=== PATIENT | female | born 1980 | race Caucasian/White ===

== ENCOUNTER → 2021-06-27 13:57 | Outpatient (CLI) | payer BC, SELFPAY ==
--- NOTE | 2021-06-27 13:57 | US_ITS ---
PROCEDURE: US TRANSVAGINAL CLINICAL INDICATION: rule out polyps or fibroids Heavy vaginal bleeding COMPARISON: No exams were available for comparison FINDINGS: UTERUS: 9cm x 6cmx 4cm with a combined endometrial thickness of 18.7mm LEFT OVARY: [id number] with a volume of 15ml. RIGHT OVARY: [id number] with a volume of 3.7ml. There is diffuse thickening of the endometrium measuring up to 19 mm. Toward the fundus within the endometrium there is a 12 x 8 mm area of slight increased echogenicity possibly related to a polyp. 17 x 16 mm left ovarian cyst with low level echoes which may represent hemorrhagic cyst. 14 mm simple appearing left ovarian cyst is present as well. There is minimal amount of fluid around the left ovary. Right ovary has an unremarkable appearance. There is bilateral ovarian blood flow. Small amount free fluid is present in the left adnexal region and cul-de-sac. The IMPRESSION: 1. Thickened endometrium with possible endometrial polyp. 2. Probable 17 mm hemorrhagic left ovarian cyst. 3. Small amount fluid in the cul-de-sac and left adnexa Dictated by: Franc Strong MD 06/28/2021 07:47 Franc Strong MD in OV 06/28/2021 07:47
== END ==
PROVIDERS: PCP Family Medicine; Visit Provider Nurse Practitioner Obstetrics & Gynecology
DX: N92.0 Excessive and frequent menstruation with regular cycle (principal)
CPT/HCPCS: 76830

== ENCOUNTER → 2021-09-12 14:08 | Outpatient (CLI) | payer BC, SELFPAY ==
[2021-09-12 14:42] LABS: Basophils # 0.2 K/mm3 (0-0.2); Eosinophils # 0.1 K/mm3 (0.0-0.4); Eosinophils % 2.2 % (0.1-12.0); Hematocrit 42.2 % (37.0-47.0); Hemoglobin 13.6 g/dL (12.2-16.2); Lymphocytes # 1.3 K/mm3 (0.7-4.5); Lymphocytes % 25.6 % (10-50); Mean Corpuscular HGB Conc 32.1 g/dL (31.8-35.4); Mean Corpuscular Hemoglobin 28.8 pg (27.0-31.2); Mean Corpuscular Volume 89.5 fl (81-99); Mean Platelet Volume 8.7 fl (7.4-10.4); Monocytes # 0.3 K/mm3 (0.1-1.0); Monocytes % 4.9 % (1.7-9.3); Neutrophils # 3.2 K/mm3 (1.8-7.8); Neutrophils % 64.3 % (37.0-80.0); Platelet Count 245 K/mm3 (142-424); Red Blood Count 4.71 M/mm3 (4.20-5.40); Red Cell Distribution Width 14.3 % (11.5-17.5)
[2021-09-12 14:59] LABS: Anion Gap 12.7 mEq/L (5-15); Blood Urea Nitrogen 18 mg/dl (7-17); Calcium 8.9 mg/dl (8.4-10.2); Carbon Dioxide 22 mmol/L (22.0-30.0); Chloride 105 mmol/L (98-107); Estimated Glomerular Filt Rate 68 ml/min (>60); GFR (African American) 83 ML/MIN (>60); Glucose 102 mg/dl (74-100); Potassium 3.7 mmoL/L (3.5-5.1); Sodium 136 mmol/L (136-145)
[2021-09-12 15:34] LABS: HCG Qualitative, Serum Negative (Negative)
== END ==
PROVIDERS: Visit Provider Nurse Practitioner Obstetrics & Gynecology
DX: Z01.818 Encounter for other preprocedural examination (principal); Z11.52 Encounter for screening for COVID-19; R10.2 Pelvic and perineal pain; N84.0 Polyp of corpus uteri
CPT/HCPCS: 36415; 80048; 84703; 85025; C9803; U0003; U0005

== ENCOUNTER 2021-09-14 06:01 | Day surgery (SDC) | payer BC, SELFPAY ==
[2021-09-06 13:32] VITALS: BMI 24.8
[2021-09-14] VITALS (10 sets, daily range): BP systolic 97–131; BP diastolic 62–85; PULSE 54–70; RESP 16–18; TEMP 36.3–43; O2SAT 95–100
--- NOTE | 2021-09-14 07:01 | HMH.ANESCL ---
[facility] Anesthesia Checklist - Patient Identification Patient Identification: Arm Band - Structural Data Admitted From: Home Planned Operative Procedure/s: D/C, hysteroscopy Consent for Planned Operative Procedure(s) Verified: Yes - NPO Status Verified Time NPO: 00:00 - Additional verifications Anesthesia Reactions: No Hx Blood Transfusions: No Blood Transfusion Reaction: No - Airway Assessment C-Spine Mobility Assessed: Yes TMJ Mobility Assessed: Yes Dentition: Good Dentition - Neurological Assessment Level of Consciousness: Awake Hx Seizures: No Numbness or tingling in extremities: No - Anesthesia Plan Anesthesia Risk discussed: Yes Anesthesia Plan: Verified ASA Class: I Anesthesia Type: General [facility] History I have reviewed the patient's past medical history: Yes Medical History: Reports:: Anxiety Denies:: Cancer, Diabetes Mellitus Type 1, Diabetes Mellitus Type 2, Internal Pacemaker, MRSA, Seizures *Have you ever received a pneumonia vaccine?: No *Have you received a flu vaccine this season?: Yes Other Medical History: Denies: Blood Transfusion Reaction Anesthesia experience/problems:: None Other Surgeries: Yes: . No: Pacemaker Amputation: No Fractures: No - *Social History Last grade of school completed: Advanced degree Smoking Status: Never smoker Alcohol Intake: current Alcohol Intake Frequency:: holidays/special occasions only Substance Use Type: denies use *Occupational Status:: employed Housing: house Household Members: family *Travel in the last 8 weeks: None - Psychiatric History Pschychiatric History:: Reports:: Anxiety Family Hx:: Cancer, Thyroid Disorder
--- NOTE | 2021-09-14 08:07 | P.PN_ITS ---
[facility] Anesthesia Record Part I Intake, IV Amount: 800 Estimated blood loss (mL): 100 Urine output (mL): 0 Blood Pressure: 97/62 SaO2: 97 Pulse Rate: 62 Respiratory Rate: 18 Temperature: 97.5 F Patient is:: Drowsy, Oral/Nasal airway Stable to PACU at:: 08:05
--- NOTE | 2021-09-14 08:24 | HMH.OPNOTE ---
Date of procedure: 09/14/21 Pre-op Diagnosis:: Menorrhagia, polyp Post-op Diagnosis:: Menorrhagia, polyp Procedure performed:: Hysteroscopy, dilation and curettage, MyoSure Surgeon:: Syed Prakash MD BUDGET ANALYST:: Tyron Michael Anesthesia: LMA Estimated blood loss (mL): 100 Clinical Note:: She is a 41-year-old lady who complains of extremely heavy periods. An ultrasound showed that she had a slightly thickened endometrium with a possible polyp. As result of that she was offered hysteroscopy, D&C and MyoSure. Operative findings:: She had a lush appearing endometrium she was on her period. There was a small 4 mm polyp that was removed at the time of the hysteroscopy. Operative note:: She was taken the operating room where LMA anesthesia was found be adequate. She is prepped draped normal sterile fashion lithotomy position. Weighted speculum was placed in the vagina and the anterior lip of the cervix was grasped with a tenaculum. Farnsworth dilators were used to dilate the cervix to approximately 7 mm. The MyoSure hysteroscope was then inserted into the uterine cavity and the findings were as previously dictated. Then using the MyoSure we removed the endometrium in its entirety. A small polyp was also removed at the very start of the procedure. We then injected 30 cc of 0.25% ropivacaine at the 3:00, 5:00, 7:00 and 9:00 positions of the cervix. She tolerated seizure well and was taken to recovery in the next condition. All sponge, instrument and needle counts were correct. The estimated blood loss was less than 100 cc. The fluid deficit was 640 cc. Condition: stable Disposition: PACU Specimens:: Endometrial curettings, endometrial polyp Complications:: None
--- NOTE | 2021-09-14 08:36 | SUR.PHASEI ---
0834- detailed report called to lorena matos in post op at this time.
--- NOTE | 2021-09-16 10:05 | HMH.ANESII ---
[facility] Anesthesia Record Part II Discharge Time: 08:35 Destination: [facility] PACU nurse assessment reviewed?: Yes Patient Condition:: Good Anesthesia Complications:: None Swallowing reflex intact?: Yes Cyanosis?: No Blood Pressure: 120/85 Pulse Rate: 54 Temperature: 97.8 F Mental Status: Alert & Oriented Pain level:: 0 Nausea and/or vomitting:: None Intake, IV Amount: 1,000
[2021-09-16 10:06] VITALS: BP 120/85; PULSE 54; TEMP 36.6
== END 2021-09-14 09:06 | disposition home health service (06) ==
LOC: OR 06:02
PROVIDERS: PCP Family Medicine; Visit Provider Nurse Practitioner Obstetrics & Gynecology
PROC: 0UDB8ZZ Extraction of Endometrium, Via Natural or Artificial Opening Endoscopic (ICD-10-PCS; CPT 58558; principal; 2021-09-14 07:30)
DX: N92.0 Excessive and frequent menstruation with regular cycle (principal); N84.0 Polyp of corpus uteri; F41.9 Anxiety disorder, unspecified; Z80.9 Family history of malignant neoplasm, unspecified; Z83.49 Family history of other endocrine, nutritional and metabolic diseases
CPT/HCPCS: 58563; 96374; J2405

== ENCOUNTER → 2022-08-01 07:59 | Outpatient (POV) | payer BC, SELFPAY | PROVIDERS: Visit Provider Dermatology | DX: Z00.00 Encounter for general adult medical examination without abnormal findings (principal) ==

== ENCOUNTER → 2023-07-06 08:18 | Outpatient (CLI) | payer BC, SELFPAY | PROVIDERS: PCP Student in an Organized Health Care Education/Training Program; Visit Provider Student in an Organized Health Care Education/Training Program | DX: J32.9 Chronic sinusitis, unspecified (principal) | CPT/HCPCS: 87635 ==

== ENCOUNTER 2024-02-19 09:30 | Outpatient (POV) | payer BC, SELFPAY | END 2024-02-19 23:59 | disposition home or self-care (01) | LOC: SC 09:30 | PROVIDERS: PCP Student in an Organized Health Care Education/Training Program; Visit Provider Dermatology | DX: Z00.00 Encounter for general adult medical examination without abnormal findings (principal) ==

== ENCOUNTER 2024-05-27 08:49 | Outpatient (POV) | payer BC, SELFPAY | END 2024-05-27 23:59 | disposition home or self-care (01) | LOC: SC 08:53 | PROVIDERS: PCP Student in an Organized Health Care Education/Training Program; Visit Provider Dermatology | DX: Z00.00 Encounter for general adult medical examination without abnormal findings (principal) ==